=== PATIENT | female | born 1985 | race Caucasian/White ===

== ENCOUNTER 2022-01-18 10:53 | Emergency (ER) | payer SELFPAY ==
[2022-01-18 12:20] LABS: BASOPHIL 0.7 % (0-2); EOSINOPHIL 1.1 % (0-5); HCT 40.9 % (37.0-47.0); HGB 13.8 g/dl (12.5-16.0); LYMPHOCYTE 6.1 % (15-48); MCH 29.7 pg (25.0-31.0); MCHC 33.7 g/dL (32.0-36.0); MCV 88.1 fL (78.0-100.0); MONOCYTE 12.4 % (0-12); MPV 9.7 fL (6.0-9.5); NRBC 0; PLT 180 K/uL (150-400); RBC 4.64 M/uL (4.20-5.40); RDW 12.7 % (11.5-14.0); WBC 7.2 K/uL (4.0-10.5)
[2022-01-18 12:34] LABS: ALBUMIN 3.8 g/dL (3.4-5.0); BILIRUBIN - TOTAL 0.4 mg/dL (0.2-1.0); BUN/CREAT RATIO (CALC) 10.1 RATIO; CREATININE 0.79 mg/dL (0.51-0.95); GLOBULIN (CALCULATION) 3.3 g/dL; POTASSIUM 3.4 mmol/L (3.5-5.1); TOTAL PROTEIN 7.1 g/dL (6.4-8.2)
[2022-01-18 13:30] LABS: BILIRUBIN NEGATIVE (NEGATIVE); BLOOD TRACE-INTACT Ery/uL (NEGATIVE); CLARITY CLEAR (CLEAR); COLOR YELLOW (YELLOW); GLUCOSE (U) NORMAL (NORMAL); LEUKOCYTES NEGATIVE Leu/uL (NEGATIVE); NITRITE NEGATIVE (NEGATIVE); PROTEIN NEGATIVE (NEGATIVE); SPECIFIC GRAVITY 1.025 (1.001-1.030); UROBILINOGEN 0.2 mg/dL (0.2-1.0)
[2022-01-18 13:38] LABS: BACTERIA TRACE; MUCOUS TRACE; URINARY RBC RARE
== END 2022-01-18 13:45 | disposition home or self-care (01) ==
LOC: FER 10:53
PROVIDERS: Emergency Medicine
DX: U07.1 COVID-19 (principal); F17.200 Nicotine dependence, unspecified, uncomplicated; Z28.310 Unvaccinated for COVID-19; Z88.2 Allergy status to sulfonamides; Z88.5 Allergy status to narcotic agent
CPT/HCPCS: 36415; 80053; 81001; 85025; J1885; J2405; J7030; U0002